=== PATIENT | male | born 1985 | race Caucasian/White ===

== ENCOUNTER 2018-09-14 16:27 | Emergency (ER) | payer MEDICARE ==
[~2018-09-14] VITALS: Ht 182.9 cm; Wt 93.2 kg
[2018-09-14 16:31] VITALS: Ht 182.9 cm; Wt 93.2 kg
[2018-09-14] MEDS ORDERED: OMEPRAZOLE20 M1 PO (16:32)
[2018-09-14 16:57] LABS: BASOPHILS 0.4 % (0-2); EOSINOPHILS 2.3 % (0-7); HEMATOCRIT 47.9 % (42.0-54.0); HEMOGLOBIN 17.2 g/dL (13.5-17.5); IMMATURE GRANULOCYTES 0.3 % (0-5); LYMPHOCYTES 21.2 % (15-50); MCH 30.3 pg (26.0-34.0); MCHC 35.9 g/dL (31.0-37.0); MCV 84.5 fL (80.0-100.0); MEAN PLATELET VOLUME 9.8 fL (7.4-10.4); MONOCYTES 7.7 % (2-11); NEUTROPHILS 68.1 % (40-80); PLATELET COUNT 316 10x3/uL (130-400); RBC 5.67 10x6/uL (4.20-6.10); RDW 13.9 % (11.5-14.5); WBC 12.4 10x3/uL (4.8-10.8)
[2018-09-14 17:10] LABS: ALBUMIN 4.4 g/dL (3.4-5.0); ALKALINE PHOSPHATASE 73 U/L (46-116); ALT (SGPT) 48 U/L (10-68); BILIRUBIN - TOTAL 0.55 mg/dL (0.2-1.3); CALC OSMOLALITY 276 mosm/kg (275-300); CARBON DIOXIDE 29.6 mmol/L (21.0-32.0); CHLORIDE - SERUM 103 mmol/L (98-107); CREATININE - SERUM 0.9 mg/dL (0.6-1.3); GLUCOSE 81 mg/dL (74-106); POTASSIUM - SERUM 4.3 mmol/L (3.5-5.1); SODIUM 140 mmol/L (136-145); UREA NITROGEN 9 mg/dL (7-18); eGFR NON AFRICAN AMERICAN > 90 mL/min (90-120)
[2018-09-14 17:34] LABS: APTT 26.3 SECONDS (22.8-39.4); INR 0.97 (0.85-1.17); PROTIME 12.4 SECONDS (11.6-15.0)
[2018-09-14 17:40] LABS: APPEARANCE CLEAR (CLEAR); BILIRUBIN NEGATIVE (NEGATIVE); COLOR YELLOW (YELLOW); GLUCOSE NEGATIVE (NEGATIVE); KETONE NEGATIVE (NEGATIVE); NITRITE NEGATIVE (NEGATIVE); PROTEIN NEGATIVE (NEGATIVE); UROBILINOGEN NORMAL (NORMAL)
[2018-09-14 17:43] LABS: WHITE CELLS - URINE RARE /hpf (0-5)
[2018-09-14 17:44] LABS: BACTERIA FEW /hpf (NONE SEEN); RED CELLS - URINE 0-5 /hpf (0-5)
[2018-09-14 20:09] VITALS: BP 148/89
== END 2018-09-14 20:11 | disposition home or self-care (01) ==
LOC: D.ER 16:27
PROVIDERS: Emergency Medicine
DX: K92.1 Melena (principal); K62.5 Hemorrhage of anus and rectum